=== PATIENT | female | born 1955 | race Caucasian/White ===

== ENCOUNTER 2018-03-07 13:41 | Emergency (ER) | payer OTHER ==
--- NOTE | 2018-03-07 15:01 | UC ---
Lower Extremity/Ankle HPI - HPI Summary HPI Summary: This is lenny Blank documenting for attending Mishel Nelson MD. This patient is a 63 year old F presenting to [facility] with a chief complaint of pain on the inside of her right foot since a 4 days ago. The patient reports that the site felt slightly warm - no reddness, no wound, edema. Pt does not know of an insect bite or injury but is concerned. The patient rates the pain 6 /10 in severity. somewhat discomfort with walking. Took APAP with mild improvement. Symptoms aggravated by bearing weight. . Patient denies fever, chills, or red streaks on her foot. The patient takes medications for HTN. Not immunocompromised. No analgesia today Pt's medications reviewed this visit - History of Current Complaint Chief Complaint: UCLowerExtremity Stated Complaint: SKIN ISSUE Time Seen by Provider: 03/07/18 14:47 Hx Obtained From: Patient Hx Last Menstrual Period: post menopause Onset/Duration: Gradual Onset, Lasting Days, Still Present Severity Initially: Mild Severity Currently: Mild Pain Intensity: 6 Pain Scale Used: 0-10 Numeric Aggravating Factor(s): Standing, Ambulation Alleviating Factor(s): Nothing Able to Bear Weight: Yes - Allergies/Home Medications Allergies/Adverse Reactions: Allergies Allergy/AdvReac Type Severity Reaction Status Date / Time No Known Allergies Allergy Verified 03/07/18 14:01 Home Medications: Home Medications Acetaminophen [Tylenol] 03/07/18 [History] hydroCHLOROthiazide [Hydrochlorothiazide] 12.5 mg PO 03/07/18 [History] PMH/Surg Hx/FS Hx/Imm Hx Previously Healthy: Yes Cardiovascular History: Hypertension - Surgical History Surgery Procedure, Year, and Place: bilateral hip replacement 2013, 2014 - Family History Known Family History: Positive: None - Social History Lives: With Family Alcohol Use: Weekly Substance Use Type: None Smoking Status (MU): Never Smoked Tobacco Review of Systems Respiratory: Negative - negative cough Musculoskeletal: Myalgia - pain on inside of right foot All Other Systems Reviewed And Are Negative: Yes Physical Exam - Summary Physical Exam Summary: Vital Signs Reviewed: Yes A+Ox3, no distress Eyes: Conjunctiva Clear ENT: Hearing grossly normal neck: supple Respiratory: Positive: No respiratory distress, No accessory muscle use Cardiovascular: skin color reflect adequate perfusion 2+ DP, PT, CBT <2 sec Musculoskeletal Exam: GREY x 4 without difficulty + flex/ext knee, ankle, great toe + TTP base 4th MT point tenderness. No edema, no erythema, no fluctuance, no warmth Neurological: Positive: Alert, ambulatory without difficulty Psychological: Positive: Normal Response To Family Skin: Positive: no rash, no ecchymosis, no open wound, no edema, no erythema Triage Information Reviewed: Yes Vital Signs: Initial Vital Signs Temp 98.3 F 03/07/18 13:53 Pulse 69 03/07/18 13:53 Resp 16 03/07/18 13:53 BP 157/81 03/07/18 13:53 Pulse Ox 99 03/07/18 13:53 Lower Extremity Course/Dx - Course Course Of Treatment: Pt presents with point tenderness to lateral sole of left foot x 5 days without progression of sx, without resolution. Pt with full ROM. no s/s infection. Pt has taken APAP with relief. suspect tendonitis / early plantar fascitis. Pt has crutches. heat. stretch. rosa. pred taper. motrin/ apap. return precautions. Pt comfortable and in agreement with plan - Differential Dx/Diagnosis Provider Diagnoses: tendonitis, left foot Discharge - Sign-Out/Discharge Documenting (check all that apply): Patient Departure - Discharge Plan Condition: Stable Disposition: HOME Prescriptions: methylPREDNISolone [Medrol Dosepak 4 MG*] 4 mg PO .SEE DIANE INSTRUCTION #1 tab Patient Education Materials: Plantar Fasciitis Exercises (GEN), Plantar Fasciitis (ED), Tendinitis (ED) Referrals: [facility] [place] [facility] REFERRAL [Outside] Sports Medicine Athletic Perf [Provider Group] Additional Instructions: - wear rosa wrap for comfort and support - it is recommended you use crutches to prevent injury to your back and left leg from walking with a limp - Take prednisone as prescribed until gone - Okay to alternate ibuprofen (Advil, Motrin)600mg and tylenol every 3hours as needed for pain. Take with food - soak your foot in warm water, 15 minutes at a time, 2-3 times a day. Once your foot is warm - slow, gentle stretching exercises are okay - You have been given the referral information for the sports medicine clinic. If you do not see this office, you should follow-up with your primary are doctor. If you develop fevers, increased pain, reddness, red streaking or any other concerns you should seek medical care at an urgent care or emergency department. - Billing Disposition and Condition Condition: STABLE Disposition: Home
== END 2018-03-07 15:15 | disposition home or self-care (01) ==
LOC: UCEAST 13:41
DX: M77.51 Other enthesopathy of right foot and ankle (principal); I10 Essential (primary) hypertension; Z79.899 Other long term (current) drug therapy; Z96.643 Presence of artificial hip joint, bilateral
CPT/HCPCS: 99202; G0463